=== PATIENT | female | born 1980 | race Caucasian/White ===

== ENCOUNTER 2020-03-05 07:33 | Emergency (ER) | payer MEDICAID, SELFPAY ==
--- NOTE | ~2020-03-05 | XR_ITS ---
XR chest 1V portable DATE: 03/05/2020 08:09 INDICATION: Cough, shortness of breath TECHNIQUE: Portable upright AP chest on 03/05/2020 at 0802 hours COMPARISON: 11/21/2018 PA and lateral chest FINDINGS: Normal heart size. No hilar or mediastinal enlargement. No pulmonary infiltrate or consolid ation, pleural effusion or pulmonary vascular congestion or pneumothorax. IMPRESSION: No active cardiac pulmonary disease Reviewed, dictated and finalized at location A.
[2020-03-05 07:40] VITALS: BP 128/68; PULSE 87; RESP 14; TEMP 37.3; O2SAT 100
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
[2020-03-05 07:54] VITALS: O2SAT 99
[2020-03-05] MEDS: KETOROLAC (*BKC) 60 MG/2 ML VIAL IM (08:14)
[2020-03-05] MEDS: ONDANSETRON HCL ODT 4 MG TABLET PO (08:15)
[2020-03-05 09:14] VITALS: BP 127/80; PULSE 82; RESP 16; O2SAT 99
== END 2020-03-05 09:31 | disposition home or self-care (01) ==
LOC: ANHED 09:12
PROVIDERS: Emergency Provider Emergency Medicine; Referring Provider Emergency Medicine
DX: R51 Headache (principal)
CPT/HCPCS: 71045; 87804; 96372; 99283; A9270; J1885

== ENCOUNTER 2020-04-15 18:40 | Emergency (ER) | payer MEDICAID, SELFPAY ==
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
[2020-04-15 18:43] VITALS: BP 112/79; PULSE 78; RESP 16; TEMP 36.8; O2SAT 96
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
[2020-04-15 19:29] LABS: Basophils Absolute Auto 0.1 K/mm3 (0.0-0.1); Basophils Percent Auto 0.6 % (0.2-1.2); Eosinophils Absolute Auto 0.1 K/mm3 (0-0.3); Eosinophils Percent Auto 1.4 % (0-4.4); Hematocrit 38.8 % (37.0-47.0); Immature Granulocyte Absolute 0.01 K/mm3 (0.00-0.031); Immature Granulocyte Percent A 0.1 % (0-0.5); Lymphocytes Absolute Auto 3.69 K/mm3 (0.9-3.2); Lymphocytes Percent Auto 44.1 % (18.3-44.2); Mean Corpuscular HGB Conc 33.5 g/dl (32-36); Mean Corpuscular Hemoglobin 29.8 pg (26-34); Monocytes Absolute Auto 0.7 K/mm3 (0.1-0.6); Monocytes Percent Auto 8.6 % (2.6-8.5); Neutrophils Absolute Auto 3.8 K/mm3 (1.3-6.7); Neutrophils Percent Auto 45.2 % (45.5-73.1); Platelet Count Result 309 k/mm3 (150-375); Red Blood Count 4.36 M/mm3 (4.2-5.4); White Blood Count 8.4 K/mm3 (4.5-10.0)
[2020-04-15 19:31] VITALS: BP 102/69; PULSE 71; RESP 24; O2SAT 95
[2020-04-15 19:39] LABS: Alanine Aminotransferase 24 U/L (4-35); Albumin Level 4.4 g/dL (3.5-5.1); Alkaline Phosphatase 70 U/L (38-126); Aspartate Amino Transferase 23 U/L (14-36); Bilirubin,Total 0.4 mg/dL (0.2-1.3); Blood Urea Nitrogen 14 mg/dL (7-17); Calcium 9.1 mg/dL (8.4-10.2); Carbon Dioxide 29 mmol/L (22-30); Chloride 103 mmol/L (98-107); Estimated CRCL calculation 111 ml/min; Estimated Glomerular Filt Rate > 60; Glucose 86 mg/dL (65-105); Potassium 3.8 mmol/L (3.4-5.0); Sodium 137 mmol/L (137-145)
[2020-04-15 19:49] LABS: Add Urine Microscopic? YES; Appearance Urine Turbid (Clear); Bilirubin Urine Negative (Negative); Blood Urine Negative (Negative); Glucose Urine UA Negative (Negative); Ketones Urine Negative (Negative); Leukocyte Esterase Ur Negative LEU/UL (Negative); Mucus Urine Rare /lpf; Nitrate Urine Negative (Negative); Protein Urine Negative (Negative); Specific Grav Ur 1.021 (1.001-1.035); Urobilinogen Urine Negative mg/dL (<2.0)
--- NOTE | 2020-04-15 19:57 | PC.NURSE ---
Pt to CT
[2020-04-15 19:59] LABS: Color Urine Light Yellow (Yellow)
[2020-04-15 20:07] VITALS: BP 105/67; PULSE 73; RESP 27; O2SAT 100
[2020-04-15 21:05] VITALS: BP 101/69; PULSE 69; RESP 24; O2SAT 98
== END 2020-04-15 21:07 | disposition home or self-care (01) ==
PROVIDERS: Emergency Medicine Emergency Medical Services; Emergency Provider Emergency Medicine
DX: S16.1XXA Strain of muscle, fascia and tendon at neck level, initial encounter (principal); S20.219A Contusion of unspecified front wall of thorax, initial encounter; Z85.41 Personal history of malignant neoplasm of cervix uteri; Z87.440 Personal history of urinary (tract) infections; Z86.2 Personal history of diseases of the blood and blood-forming organs and certain disorders involving the immune mechanism; V47.5XXA Car driver injured in collision with fixed or stationary object in traffic accident, initial encounter
CPT/HCPCS: 36415; 71260; 72125; 74177; 80053; 81001; 85025; 87086; 96374; 99284; J3360; Q9967

== ENCOUNTER 2021-04-06 18:48 | Observation (INO) | payer BC, SELFPAY ==
[2021-04-06 20:48] LABS: Amphetamine Screen Urine Negative (Negative); Barbiturate Screen Urine Negative (Negative); Benzodiazepines Screen Urine Positive (Negative); Cannabinoid Screen Urine Negative (Negative); Cocaine Screen Urine Negative (Negative); Methadone Screen Urine Negative (Negative); Opiate Screen Urine Negative (Negative); Phencyclidine Screen Urine Negative (Negative)
--- NOTE | 2021-04-06 20:57 | LDADM ---
This patient, Yola Rosario, was admitted to Labor/Delivery/Recovery 104 on 04/06/21 at 18:48. Plans for labor, pain management and were discussed with patient. Patient/family oriented to hospital policies and general routines including ID bracelet, bed and alarms, visiting hours, pain management, procedures, bathroom and other care routines, personal items, smoking policy, room service/diet and guest tray routines, infant security routines, and visiting hours. Patient/Family are encouraged to report perceived risks to care and to ask questions if they do not understand what they are told or what they should do. See OBIX for further documentation.
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
--- NOTE | 2021-04-09 16:30 | PM.OBTRLD ---
OB - Triage/Final Diagnosis Visit Information Comments/Additional reasons for admission: I have assessed the risk for this patient, Yola Rosario, and determined that she would benefit from observation care. Evaluation Laboratory results: Laboratory Tests 04/06/21 20:23 Urine Opiates Screen Negative Urine Methadone Screen Negative Ur Barbiturates Screen Negative Ur Phencyclidine Scrn Negative Ur Amphetamine Screen Negative U Benzodiazepines Scrn Positive A Urine Cocaine Screen Negative U Cannabinoids Screen Negative Final Diagnosis (1) Back pain: Code(s): M54.9 - Dorsalgia, unspecified Status: Acute (2) H/O: hysterectomy: Code(s): Z90.710 - Acquired absence of both cervix and uterus Status: Acute Plan: - pt presented to L&D stating she was 41wks with twin girls. US, speculum and digital exam revealed total hysterectomy; pt was unable to become
== END 2021-04-06 20:18 | disposition home or self-care (01) ==
PROVIDERS: Admitting Provider Obstetrics & Gynecology; Visit Provider Obstetrics & Gynecology
DX: M54.9 Dorsalgia, unspecified (principal); Z90.710 Acquired absence of both cervix and uterus
CPT/HCPCS: 80307; G0378; G0379